=== PATIENT | male | born 1970 | race Caucasian/White ===

== ENCOUNTER → 2019-08-06 08:43 | Day surgery (SDC) | payer MEDICARE, BC ==
[~2019-08-06] VITALS: Ht 180.3 cm; Wt 63.5 kg
[~2019-08-06 08:43] MED LIST: FERROUS SULFAT325 MG PO; GENTAMICIN CREAM; GLUCOTROL 5 MG T5 MG PO; HUMALOG MIX 75/10 ML SC; LANTUS SC; MIDODRINE HCL5 MG PO; NEPHRO-VITE RX1 TAB PO; PANCRELIPASE; PROTONIX40 MG PO; REGLAN5 MG PO; RENVELA800 MG PO; ULTRAM50 MG PO; ZOFRAN4 MG PO
[2019-08-06 09:02] LABS: BASOPHILS 0.1 % (0-2); EOSINOPHILS 1.4 % (0-7); HEMATOCRIT 32.8 % (42.0-54.0); HEMOGLOBIN 9.6 g/dL (13.5-17.5); IMMATURE GRANULOCYTES 0.7 % (0-5); LYMPHOCYTES 18.3 % (15-50); MCH 26.2 pg (26.0-34.0); MCHC 29.3 g/dL (31.0-37.0); MCV 89.4 fL (80.0-100.0); MEAN PLATELET VOLUME 8.8 fL (7.4-10.4); NEUTROPHILS 71.5 % (40-80); PLATELET COUNT 159 10x3/uL (130-400); RBC 3.67 10x6/uL (4.20-6.10); RDW 16.7 % (11.5-14.5); WBC 7.3 10x3/uL (4.8-10.8)
[2019-08-06 09:13] LABS: PROTIME 13.2 SECONDS (11.6-15.0)
[2019-08-06 09:20] LABS: ANION GAP 13.5 mmol/L (8-16); CALCIUM 10.2 mg/dL (8.5-10.1); CARBON DIOXIDE 24.5 mmol/L (21.0-32.0); CREATININE - SERUM 4.1 mg/dL (0.6-1.3)
[2019-08-06 12:09] VITALS: BP 170/81; Ht 180.3 cm; Wt 63.5 kg
--- NOTE | 2019-08-06 19:02 | NUR ---
OLD INFECTED PD CATHETER DISPOSED OF PER DR TSAI REQUEST
--- NOTE | 2019-08-06 20:15 | NUR ---
SPOKE WITH LEADED GLASS INSTALLER KLEVER WHO STATES "I HAVE SPOKEN WITH KRISTEN AVILA AND THAT PATIENT IS TO BE BE DISCHARGED FROM PACU TO ER".
--- NOTE | 2019-08-06 20:30 | NUR ---
BEDSIDE REPORT GIVEN TO GEOVANI AU IN THE ER.
--- NOTE | 2019-08-07 12:46 | MORECARE ---
CASE MANAGEMENT DISCHARGE SUMMARY PATIENT: MAXX SCALES UNIT: [id number] ADM DATE: 08/06/19 AGE: 49 : 66 SEX: M ROOM/BED: AUTHOR: JAYCOB HANLEY PHYSICIAN: REFERRING PHYSICIAN: SHARLA TSAI MD DATE OF SERVICE: 08/07/19 Discharge Plan Patient Name: MAXX SCALES Facility: [facility]:[place] : 1970 Planned Disposition: Anticipated Discharge Date: Discharge Date: 08/06/2019 Expected LOS: 0 Initial Reviewer: [email or web address] Initial Review Date: 08/07/2019 Generated: 08/07/19 1:46 pm Comments DCP- Discharge Planning Updated by [email or web address]: Alma Martinez on 08/07/19 10:[address] CM received an order for [facility] for patient who DC'd 08/05 pm. Contacted patient via telephone #[phone], regarding same. Patient states he has no preference for [facility] and is not familiar with one in his area. CM obtained telephone permission to contact any [facility] that would provide care @1100 08/07/19. CM contacted [facility], in [facility], spoke with Elza @[phone], provided the required information and faxed required information to #[phone] for a new referral. Elza states they may not be able to see him today, but will get him on the schedule. CM contacted patient, obtained his physical address: [address] [place] [address], [facility]. Patient stated he is in [place] at another appointment, today. CM contacted [facility], made her aware of physical address and the conversation with the patient. Patient Name: MAXX SCALES Page 40347 at 1246 All edits/amendments must be made on the electronic document DICTATION DATE: 08/07/19 1246 VASC TECH: SHRUTI 08/07/19 1246 RPT#: [id number] DC DATE:08/06/19 STATUS: [address] [address] END OF REPORT
--- NOTE | 2019-08-07 13:09 | MORECARE ---
CASE MANAGEMENT DISCHARGE SUMMARY PATIENT: MAXX SCALES UNIT: [id number] ADM DATE: 08/06/19 AGE: 49 : 66 SEX: M ROOM/BED: AUTHOR: JAYCOB HANLEY PHYSICIAN: REFERRING PHYSICIAN: SHARLA TSAI MD DATE OF SERVICE: 08/07/19 Discharge Plan Patient Name: MAXX SCALES Facility: [facility]:[place] : 1970 Planned Disposition: Home with Home Health Anticipated Discharge Date: 08/06/19 Discharge Date: 08/06/2019 Expected LOS: 1 Initial Reviewer: [email or web address] Initial Review Date: 08/07/2019 Generated: 08/07/19 2:09 pm Comments DCP- Discharge Planning Updated by [email or web address]: Alma Martinez on 08/07/19 10:[address] CM received an order for [facility] for patient who DC'd 08/05 pm. Contacted patient via telephone #[phone], regarding same. Patient states he has no preference for [facility] and is not familiar with one in his area. CM obtained telephone permission to contact any [facility] that would provide care @1100 08/07/19. CM contacted Care , in [facility], spoke with Elza @[phone], provided the required information and faxed required information to #[phone] for a new referral. Elza states they may not be able to see him today, but will get him on the schedule. CM contacted patient, obtained his physical address: [address] [place] [address], [facility]. Patient stated he is in [place] at another appointment, today. CM contacted Elza, [facility], made her aware of physical address and the conversation with the patient. Last DP export: 08/07/19 11:46 a Patient Name: MAXX SCALES Page 43327 at 1309 All edits/amendments must be made on the electronic document DICTATION DATE: 08/07/19 1309 SALES SUPPORT ADMINISTRATOR: SHRUTI 08/07/19 1309 RPT#: [id number] DC DATE:08/06/19 STATUS: DEP [facility] [address] [place] [address] END OF REPORT
--- NOTE | 2019-08-07 13:26 | MORECARE ---
CASE MANAGEMENT DISCHARGE SUMMARY PATIENT: MAXX SCALES UNIT: [id number] ADM DATE: 08/06/19 AGE: 49 : 66 SEX: M ROOM/BED: AUTHOR: JAYCOB HANLEY PHYSICIAN: REFERRING PHYSICIAN: SHARLA TSAI MD DATE OF SERVICE: 08/07/19 Discharge Plan Patient Name: MAXX SCALES Facility: [facility]:[place] : 1970 Planned Disposition: Home with Home Health Anticipated Discharge Date: 08/06/19 Discharge Date: 08/06/2019 Expected LOS: 1 Initial Reviewer: [email or web address] Initial Review Date: 08/07/2019 Generated: 08/07/19 2:26 pm Comments DCP- Discharge Planning Updated by [email or web address]: Alma Martinez on 08/07/19 10:[address] CM received an order for [facility] for patient who DC'd 08/05 pm. Contacted patient via telephone #[phone], regarding same. Patient states he has no preference for [facility] and is not familiar with one in his area. CM obtained telephone permission to contact any [facility] that would provide care @1100 08/07/19. CM contacted Care , in [facility], spoke with Elza @[phone], provided the required information and faxed required information to #[phone] for a new referral. Elza states they may not be able to see him today, but will get him on the schedule. CM contacted patient, obtained his physical address: [address] [place] [address], [facility]. Patient stated he is in [place] at another appointment, today. CM contacted Elza, [facility], made her aware of physical address and the conversation with the patient. External Providers External Provider: OTHER-OTHER Next Contact Date: Service Request Date: Service Type: Resolution: Reviewer: Comments: Last DP export: 08/07/19 12:09 p Patient Name: MAXX SCALES Page 42383 at 1326 All edits/amendments must be made on the electronic document DICTATION DATE: 08/07/19 1326 JAMB CUTTER: SHRUTI 08/07/19 1326 RPT#: [id number] DC DATE:08/06/19 STATUS: [facility] [address] [place] [address] END OF REPORT
--- NOTE | 2019-08-07 17:25 | MORECARE ---
CASE MANAGEMENT DISCHARGE SUMMARY PATIENT: MAXX SCALES UNIT: [id number] ADM DATE: 08/06/19 AGE: 49 : 66 SEX: M ROOM/BED: AUTHOR: JAYCOB HANLEY PHYSICIAN: REFERRING PHYSICIAN: SHARLA TSAI MD DATE OF SERVICE: 08/07/19 Discharge Plan Patient Name: MAXX SCALES Facility: [facility]:[place] : 1970 Planned Disposition: Home with Home Health Anticipated Discharge Date: 08/06/19 Discharge Date: 08/06/2019 Expected LOS: 1 Initial Reviewer: [email or web address] Initial Review Date: 08/07/2019 Generated: 08/07/19 6:24 pm Comments DCP- Discharge Planning Updated by [email or web address]: Alma Martinez on 08/07/19 4:23 pm DEE Cruz with [facility], states that he is contacting Dr. Marie, patient's PCP, regarding signature for [facility]. received an order for [facility] for patient who DC'd 08/05 pm. Contacted patient via telephone #[phone], regarding same. Patient states he has no preference for [facility] and is not familiar with one in his area. JI obtained telephone permission to contact any [facility] that would provide care @1100 08/07/19. JI contacted [facility], in [facility], spoke with Elza @[phone], provided the required information and faxed required information to #[phone] for a new referral. Elza states they may not be able to see him today, but will get him on the schedule. JI contacted patient, obtained his physical address: [address] [place] [address], [facility]. Patient stated he is in [place] at another appointment, today. JI contacted Elza [facility], made her aware of physical address and the conversation with the patient. Last DP export: 08/07/19 12:26 p Patient Name: MXAX SCALES Page [phone] at 5925 All edits/amendments must be made on the electronic document DICTATION DATE: 08/07/191723 OCCUPATIONAL THERAPIST REHAB MANAGER: DM 08/07/191723 RPT#: [id number] DC DATE:08/06/19 STATUS: DEP [facility] [address] [place] [address] END OF REPORT
--- NOTE | 2019-08-10 21:03 | OP ---
PATIENT NAME: MAXX SCALES MEDICAL RECORD: [id number] :66 [facility] DATE: SURGEON: SHARLA TSAI MD DATE OF OPERATION: 08/06/2019 REFERRED BY: Lee Block MD PREOPERATIVE DIAGNOSIS: Infected peritoneal dialysis catheter. 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 OPERATION PERFORMED: Exploration and removal of peritoneal dialysis catheter followed by ultrasound and fluoroscopic-guided insertion of a 19-cm right internal jugular HemoSplit catheter. SURGEON: Sharla Tsai MD ANESTHESIA: General with LMA per IT INFRASTRUCTURE MANAGER. PREOPERATIVE NOTE: Mr. Scales is a 49-year-old white male patient with end-stage renal disease, who has been dialyzing for about 4 years with a peritoneal dialysis catheter. He has had an AV fistula, which failed. He has no other means of dialyzing. He has developed gross peritoneal dialysis catheter tunnel infection with perforation and drainage over the intra-cuff segment. DESCRIPTION OF PROCEDURE: The patient was prepped and draped in a sterile manner and the catheter tract explored and the abscess was found to extend all the way to the rectus sheath into the deep cuff. The abscess was unroofed and debrided. Hemostasis was obtained with electrocautery. The catheter with both cuffs was removed entirely. The wound was irrigated with Ancef and gentamicin solution, infiltrated with 0.25% Marcaine without epinephrine and then dressed wet to dry with gentamicin and Ancef solution and dry sterile gauze applied over that. The patient was then completely reprepped and draped. New surgical gloves and gowns and instrumentation, etc. The right internal jugular vein was then localized with ultrasound. Images were current for permanent record. The vein was of normal caliber and fully compressible with no visible abnormality. A small incision was made at the base of the neck on the right and a micropuncture needle and guidewire were inserted. Under fluoroscopy, the guidewire was exchanged for a larger caliber guidewire and serial dilators were passed and finally the peelaway dilator introducer was inserted. A 19-cm HemoSplit catheter was chosen and inserted through a small incision beneath the clavicle and pulled through a subcutaneous tunnel and inserted through the peel-away sheath. The catheter spinal position was very satisfactory deep in the right atrium with the venous lumen lying in a medial position or medial to the arterial limb. The catheter was accessed and aspirated. Both lumens returned blood very easily. They were then flushed with heparinized saline and then heparin locked, clamped and capped. The catheter was sutured to the skin near the entry site with 2-0 Prolene. The cervical incision was closed with interrupted inverted 3-0 Vicryl and Dermabond glue and dressed with Maxorb AG and Tegaderm and Cavilon skin prep. A BioPatch was applied to the catheter at the entry site and a sterile CVL dressing over that with Cavilon skin prep. The patient was awakened in a stable condition taken to the recovery room. OPERATIVE REPORT [id number] WHITE,MAXX There was no blood loss during the procedure. Sponges, instruments, and needles were accounted for, etc. No surgical specimen was submitted for histopathology. The wound was cultured for aerobic and anaerobic organisms and Gram stain, results of which is pending. This patient suffered sudden unilateral left-sided visual loss the night before with no other symptoms. He will be evaluated in the Emergency Room and have ophthalmology consultation. I will plan to see him back in my office in about 2 weeks. We will get home health started seeing him tomorrow for wet-to-dry dressings daily with 0.25% or 0.5% Dakin solution. I will plan to return him to the operating room in 2-3 weeks hopefully for a laparoscopic implantation of a new peritoneal dialysis catheter. We will have to discuss with him possibly creating a new hemodialysis access as backup. TRANSINT:[id number] Voice Confirmation ID: [id number] DOCUMENT ID: [id number] SHARLA TSAI MD at 2103 CC: LEE BLOCK [id number] DICTATION DATE: 08/09/19 0844 CRAYON GRADER: 08/09/[address] [facility] 08/06/19 [facility] [address] [place] [place] [id number]
[2019-08-12 16:08] LABS: AEROBE ID Final report (())
== END | disposition home or self-care (01) ==
LOC: D.OPS 08:43
PROVIDERS: ATTEND Surgery
DX: T85.71XA Infection and inflammatory reaction due to peritoneal dialysis catheter, initial encounter (principal); E11.22 Type 2 diabetes mellitus with diabetic chronic kidney disease; N18.6 End stage renal disease; Z79.84 Long term (current) use of oral hypoglycemic drugs; Z99.2 Dependence on renal dialysis

== ENCOUNTER 2019-08-06 20:33 | Emergency (ER) | payer MEDICARE, BC ==
[~2019-08-06] VITALS: Ht 180.3 cm; Wt 63.5 kg
[2019-08-06 20:34] VITALS: Ht 180.3 cm; Wt 63.5 kg
[2019-08-06 21:34] VITALS: BP 128/70
== END 2019-08-06 21:37 | disposition home or self-care (01) ==
LOC: D.ER 20:33
DX: H54.62 Unqualified visual loss, left eye, normal vision right eye (principal); E11.22 Type 2 diabetes mellitus with diabetic chronic kidney disease; N18.6 End stage renal disease; D86.9 Sarcoidosis, unspecified; Z99.2 Dependence on renal dialysis; K21.9 Gastro-esophageal reflux disease without esophagitis; Z79.4 Long term (current) use of insulin

== ENCOUNTER → 2019-10-10 10:54 | Outpatient (CLI) | payer MEDICARE, BC ==
[2019-08-06 20:34] VITALS: BMI 19.5
== END | disposition home or self-care (01) ==
LOC: D.CT 10:54
PROVIDERS: ATTEND Surgery
DX: N28.0 Ischemia and infarction of kidney (principal); N18.6 End stage renal disease

== ENCOUNTER 2019-10-22 06:15 | Day surgery (SDC) | payer MEDICARE, BC ==
[~2019-10-22] VITALS: Ht 180.3 cm; Wt 68.2 kg
[2019-10-22 06:37] LABS: BASOPHILS 0.5 % (0-2); EOSINOPHILS 2.8 % (0-7); HEMATOCRIT 35.2 % (42.0-54.0); HEMOGLOBIN 10.6 g/dL (13.5-17.5); LYMPHOCYTES 28.7 % (15-50); MCH 26.4 pg (26.0-34.0); MCHC 30.1 g/dL (31.0-37.0); MCV 87.8 fL (80.0-100.0); MEAN PLATELET VOLUME 10.1 fL (7.4-10.4); MONOCYTES 12.2 % (2-11); NEUTROPHILS 55.8 % (40-80); PLATELET COUNT 134 10x3/uL (130-400); RBC 4.01 10x6/uL (4.20-6.10); WBC 4.4 10x3/uL (4.8-10.8)
[2019-10-22 07:02] LABS: PROTIME 13.1 SECONDS (11.6-15.0)
[2019-10-22 07:09] LABS: ANION GAP 10.2 mmol/L (8-16); CARBON DIOXIDE 29.1 mmol/L (21.0-32.0); CREATININE - SERUM 3.9 mg/dL (0.6-1.3); POTASSIUM - SERUM 3.3 mmol/L (3.5-5.1)
[2019-10-22 07:13] LABS: CALCIUM 12.3 mg/dL (8.5-10.1)
[2019-10-22] MEDS ORDERED: ASPIRIN325 MG PO (07:15)
[2019-10-22] MEDS ORDERED: PLAVIX75 MG PO (07:15)
[2019-10-22 07:47] VITALS: BP 101/71; Ht 180.3 cm; Wt 68.2 kg
--- NOTE | 2019-10-22 08:08 | NUR ---
ATTEMPTED CALLING FABI AND DR. TSAI REGARDING CRITICAL LAB CALCIUM. NO ANSWER. INFORMED ANESTHESIA OF CRITICAL LAB. NO ORDERS GIVEN.
[2019-10-22] MEDS ORDERED: HYDROCODON-ACE1 EAC7 PO (10:15)
--- NOTE | 2019-10-22 11:03 | NUR ---
1102 CALL PLACED TO [facility]. SPOKE WITH JEANNIE PETERSON RN. NOTIFIED THAT DR. TSAI WANTS PATIENT TO RECEIVE FLUSH PER AMPARO ARMSTRONG R.N. EITHER , MONDAY, OR MONDAY. STATES HE IS ON NATHANIEL'S SCHEDULE FOR FLUSH ON MONDAY. Polina FLORES R.N.
--- NOTE | 2019-10-22 13:05 | NUR ---
PATIENT AMBULATES TO BATHROOM AND VOIDS LARGE AMOUNT IN TOILET WITHOUT DIFFICULTY. AMBULATES WITHOUT DIZZINESS OR UNSTEADINESS. LEFT AC PIV DC'D WITH TIP INTACT. DISCHARGE INSTRUCTIONS REVIEWED WITH PATIENT AND SPOUSE AT 1313
--- NOTE | 2019-10-22 13:18 | NUR ---
DISCHARGED HOME VIA WHEELCHAIR TO PRIVATE VEHICLE WITH SPOUSE
--- NOTE | 2019-10-23 10:35 | OP ---
PATIENT NAME: MAXX SCALES MEDICAL RECORD: [id number] :66 LOCATION:D[facility] ADMISSION DATE: SURGEON: SHARLA TSAI MD DATE OF OPERATION: 10/22/2019 REFERRING PHYSICIAN: Lee Block MD PREOPERATIVE DIAGNOSES: End-stage renal disease and dependence on hemodialysis and postop status removal of infected peritoneal dialysis catheter. OPERATION PERFORMED: Laparoscopic implantation of peritoneal dialysis catheter with laparoscopic omentopexy. SURGEON: Sharla Tsai MD ANESTHESIA: General endotracheal per PERFORMANCE TESTER. PREOPERATIVE NOTE: Mr. Scales is a 49-year-old white male with end-stage renal disease, presently dialyzing via a right internal jugular vein tunneled dialysis catheter at the [facility]. He had had a peritoneal dialysis catheter on the right side of his abdomen, but I had to remove this sometime ago due to chronic infection. He wants to resume peritoneal dialysis and has returned to the operating room as an outpatient at this time to implant another PD catheter. He has a thrombosed AV fistula on the left arm, but is not yet ready to proceed with a new hemodialysis access. DESCRIPTION OF PROCEDURE: Under anesthesia in supine position, the patient was prepped and draped in sterile manner. A Montaño catheter was inserted by the circulating RN. An incision was made in the left upper quadrant and a 5-mm 0-degree laparoscope was inserted in a 5-mm Optiview XCEL trocar. Pneumoperitoneum was established with carbon dioxide and the laparoscope was switched out for a 30-degree scope. The abdomen was free of adhesions. The omentum was draped evenly and symmetrically over the anterior aspect of the bowel all the way down to the pelvis and I felt that it was although thin, it would be somewhat of a risk for wrapping the new catheter and so at that point, committed to doing an omentopexy. I did place a second 5-mm port in the left lower quadrant for instrumentation. I measured on the abdomen and to the left of the midline and just below the level of the umbilicus, I made a vertical incision down to the anterior rectus sheath. I placed a pursestring suture of 0 Vicryl and infiltrated the rectus muscle with 0.25% Marcaine with epinephrine. I inserted a trocar and plastic sheath then making an oblique intrarectus tunnel to help guide the catheter down into the pelvis. The new catheter which was Merit Classic Flex-Neck adult standard size dual-cuff coil catheter was lubricated and then inserted into the abdomen through the introducer sheath and the sheath was removed. The coiled end of the catheter came to lie in the true pelvis and I was very pleased with the position. The Dacron felt cuff was seated in the rectus muscle deep to the anterior rectus sheath and the pursestring suture tied. The catheter was then placed in a subcutaneous tunnel to a previously identified exit site in the left upper quadrant. The catheter was then accessed and flushed with saline. It flushed easily. I then used it to fill the abdomen with 1000 cc of saline and then siphoned the fluid back into the bag and basically got 100% return and this was without any laparoscopic pressure or gas pressure. The catheter was subsequently attached to the OPERATIVE REPORT [id number] MAXX SCALES transfer set and then flushed with saline and then lastly with 60 cc of heparin locked solution, clamped and capped. The patient's midline incision was infiltrated further with some Marcaine and then closed with interrupted inverted 3-0 Vicryl and running intracuticular 4-0 Stratafix and Dermabond glue. There was an area of chronic irritation adjacent to that incision which I treated with an application of Bactroban ointment and applied Maxorb AG and Tegaderm over that. I then made an incision in the skin in the right upper quadrant and through that incision using a Lino-Robert suture passer placed two 0 Vicryl sutures through 2 adjacent sites and the omentum pulling it up out of the pelvis and holding it snugly up against the anterior abdominal wall in the right upper quadrant. The wound was infiltrated with 0.25% Marcaine with epinephrine. All of the port sites were then infiltrated with Marcaine and the ports removed after allowing insulated carbon dioxide to escape. Wounds were closed with interrupted inverted 3-0 Vicryl and Dermabond glue. They were dressed with Maxorb Ag, Tegaderm, and Cavilon skin prep and the patient's catheter was coiled and covered with a bordered gauze dressing after applying a chlorhexidine Biopatch to the catheter at the entry site. The patient will be discharged today having tolerated procedure well. He will return to see me in my office in about 2 weeks. We will arrange for him to have his catheter flushed in the dialysis center in [place] on either Monday or Monday coming. Hopefully, they will remove all of his dressings next week and save me from having due in my office in 2 weeks. He is given a prescription for [place]ep[place] 5/325, #20, one p.o. q.4 hours p.r.n. pain. He will resume all of his other home previous medications, diet and activities. He will continue his same hemodialysis schedule. It will be a couple of weeks before he starts peritoneal dialysis. Blood loss during the operation was insignificant and unreplaced. Sponges, instruments, and needles were accounted for. No surgical specimen was submitted for histopathology and no drain was utilized. TRANSINT:[id number] Voice Confirmation ID: [id number] DOCUMENT ID: [id number] SHARLA TSAI MD at 1035 CC: LEE BLOCK [id number] DICTATION DATE: 10/22/19 1027 [place] OPERATOR: 10/22/19 1805 [facility] 10/22/19 [facility] [address] [place] [address]
== END 2019-10-22 13:18 | disposition home or self-care (01) ==
LOC: D.OPS 06:15
PROVIDERS: Surgery; ATTEND Internal Medicine Nephrology
DX: E11.22 Type 2 diabetes mellitus with diabetic chronic kidney disease (principal); N18.6 End stage renal disease; Z99.2 Dependence on renal dialysis; Z79.84 Long term (current) use of oral hypoglycemic drugs